=== PATIENT | male | born 1945 | race Caucasian/White ===

== ENCOUNTER 2020-10-17 07:48 | Emergency (ER) | payer MEDICARE, SELFPAY ==
[2020-10-17 07:49] VITALS: BP 138/106; PULSE 89; RESP 14; TEMP 36.6; O2SAT 96; BMI 24.0
--- NOTE | 2020-10-17 08:16 | EX.ED.DYSGE1 ---
HPI History of Present Illness Chief Complaint: Foreign Body Narrative Narrative: Patient complains of a food foreign body stuck in his esophagus that occurred last night after he ate hamburger and macaroni and cheese at a picnic. He has been unable to swallow since this. He has had prior food impactions treated at [facility] by GI he has prior EGD he has prior esophageal stretching about a year ago. He is otherwise been stable health conditions hypertension and gout are all stable his only complaint is trouble swallowing food Past medical history is GI esophageal obstruction related to food impaction, esophageal stricture, hypertension gout Parkinson's disease [facility] Medical History (Updated 10/17/20 @ 08:31 by Karina Torres) Hypertension Home Medications Sinemet 25/100 2 tab PO TID 02/10/13 [History Last Taken 02/10/13 14:05] allopurinol 300 mg PO DAILY 02/10/13 [History Last Taken 02/10/13 09:35] carbidopa-levodopa 2 tab PO TIDAC #60 tablet 02/20/13 [Rx Last Taken Unknown] lisinopril 10 mg PO DAILY #30 02/20/13 [Rx Last Taken 02/10/13 09:35] prednisone 10 mg PO DAILY #18 02/20/13 [Rx Last Taken 02/10/13 09:35] Allergy/AdvReac Type Severity Reaction Status Date / Time cocoa [[place]] AdvReac Food Verified 10/17/20 07:51 Allergy Social History Smoking Status: Never smoker ROS ROS ED ROS Narrative Trouble swallowing is his only complaint Constitutional Constitutional ED: Reports subjective, sweats and other; Denies chills, fever(s) or weight loss Eyes Eyes: Denies blurry vision or change in vision ENT ENT ED: Denies ear pain Cardiovascular Cardiovascular: Denies chest pain or palpitations Respiratory/Chest Respiratory/Chest: Denies dyspnea Gastrointestinal Gastrointestinal: Denies abdominal pain, nausea or vomiting Genitourinary Genitourinary ED: Denies dysuria or hematuria Musculoskeletal Musculoskeletal: Denies arthralgias or myalgias Integumentary Reports rash; Denies abscess Neurologic Neurologic: Denies weakness Psychiatric Psychiatric: Denies anxiety or depression Endocrine Endocrinology: Denies polydipsia or polyuria Allergic/Immunologic Allergic/Immunologic ED: Denies urticaria EXAM Physical Exam Narrative Exam Narrative: He spitting up clear saliva he cannot take sips of liquid, his airways intact his mouth is unremarkable this general medical exam is otherwise unremarkable see below, Const Vital Signs: 10/17/20 07:49 10/17/20 08:57 Temperature 97.9 F Temperature Source Temporal Pulse Rate 89 62 Respiratory Rate 14 18 Blood Pressure 138/106 H Blood Pressure Mean 116 Pulse Ox 96 100 Oxygen Delivery Method Room Air Positive well developed General Appearance ED: well developed HEENT Reports normocephalic Negative for trauma Eyes EOMs intact bilaterally Neck supple Chest Wall inspection of chest normal Resp normal respiratory effort Cardio regular rate GI non-tender and non-distended Back/Spine Back/Spine Narrative: unremarkable Extremity normal to inspection Neuro oriented x3 and CN's II-XII intact bilaterally Sensorium / Orientation: alert Psych mental status grossly normal Skin no rashes or lesions noted MDM MDM MDM Narrative Medical decision making narrative: I had a long conversation with him he understands that he will likely require emergent EGD given the above we did treat him with glucagon Ativan 0.5 mg IV Patient screening labs are generally unremarkable his hemoglobin is 18, he was given glucagon and Ativan as above he had no response continues to complain and cannot swallow and spitting up saliva I spoke with the [facility] transfer center spoke with Dr. Decker of GI he is a patient of that group they have accepted in transfer to have this condition further managed at [facility] patient is agreeable to transfer Transfer to [facility] for GI evaluation Final impression esophageal food impaction history of same, history of esophageal stricture Parkinson's and hypertension Lab Data Labs: Laboratory Results - last 24 hr 10/17/20 10/17/20 08:25 08:25 WBC 6.0 RBC 4.94 Hgb 18.8 H* Hct 54.1 H MCV 109.5 H MCH 38.1 H MCHC 34.8 RDW Std Deviation 54.6 H RDW Coeff of Sangeeta 13.2 Plt Count 375 MPV 8.6 Immature Gran % (Auto) 0.700 Neut % (Auto) 58.9 Lymph % (Auto) 22.5 [place] % (Auto) 7.7 Eos % (Auto) 9.7 H Baso % (Auto) 0.5 Absolute Neuts (auto) 3.5 Absolute Lymphs (auto) 1.35 Nucleated RBC % 0 Sodium 140 Potassium 3.7 Chloride 104 Carbon Dioxide 29.0 Anion Gap 7 BUN 8 Creatinine 1.04 Estim Creat Clear Calc 63.37 Est GFR (MDRD) Af Amer 90 Est GFR (MDRD) Non-Af 74 BUN/Creatinine Ratio 7.7 L Glucose 95 Calcium 9.0 Discharge Plan Triage Chief Complaint: Foreign Body ED Provider: Rose Sebastian Dx/Rx/DC Orders Prescriptions: No Action allopurinol 300 MG tablet 300 mg PO DAILY RF: 0 Sinemet 25/100 2 tab PO TID RF: 0 lisinopril 10 MG tablet 10 mg PO DAILY Qty: 30 RF: 0 prednisone 50 MG tablet 10 mg PO DAILY Qty: 18 RF: 0 carbidopa-levodopa 1 TABLET tablet 2 tab PO TIDAC Qty: 60 RF: 0 Primary Care Provider: Sebas Staton Referrals: Sebas Staton DO [Primary Care Provider] - Activity Restrictions/Additional Instructions: Go directly to [facility] to have a GI evaluation in this condition managed
[2020-10-17] MEDS: LORazepam 2 MG/ML Syringe 0.5 MG IV (08:20)
[2020-10-17] MEDS: Glucagon 1 MG/ML Syringe IV (08:22)
[2020-10-17 08:32] LABS: Absolute Lymphocyte Count 1.35 X10^3/uL (0.83-4.51); Absolute Neutrophil Count 3.5 X10^3/uL (2.0-7.7); Basophil# 0.03 X10^3/uL; Basophil% 0.5 % (0-1); Eosinophil# 0.58 X10^3/uL; Eosinophils% 9.7 % (0-5); Hematocrit 54.1 % (40-54); Hemoglobin 18.8 g/dL (13.0-16.5); Lymphocyte # 1.35 X10^3/ul (0.83-4.51); Lymphocyte % 22.5 % (19-41); Mean Corp Hgb Conc 34.8 g/dL (32-36); Mean Corpuscular Hgb 38.1 pg (27.0-32.0); Mean Corpuscular Volume 109.5 fL (80-94); Mean Platelet Vol. 8.6 fl (6.2-12.0); Monocyte# 0.46 X10^3/uL; Monocyte% 7.7 % (0-10); NRBC Flagged by Analyzer 0 % (0-5); Neutrophil # 3.54 X10^3/uL (2.7-7.7); Neutrophil % 58.9 % (47-70); Platelet Count 375 K/mm3 (150-450); RBC Distribution Width CV 13.2 % (11.6-14.6); RBC Distribution Width SD 54.6 fl (35.1-43.9); Red Blood Count 4.94 M/mm3 (4.6-6.2)
[2020-10-17 08:49] LABS: Anion Gap 7 (5-15); BUN 8 mg/dL (7-18); BUN/Creat Ratio 7.7 RATIO (10-20); Chloride 104 mmol/L (98-107); Creatinine, Serum 1.04 mg/dL (0.70-1.30); EST Glomerular Filtration Rate 74 mL/min (>60); Est Glom Filt Rate - Afr Amer 90 mL/min (>60); Estimated Creatinine Clearance 63.37 ml/min; Glucose 95 mg/dL (74-106); Potassium 3.7 mmol/L (3.5-5.1); Sodium Level 140 mmol/L (136-145)
[2020-10-17 08:57] VITALS: PULSE 62; RESP 18; O2SAT 100
[2020-10-17 09:34] VITALS: BP 165/103; PULSE 82; RESP 18; O2SAT 99
[2020-10-17 10:38] VITALS: BP 165/103; PULSE 82; RESP 18; O2SAT 99
== END 2020-10-17 10:40 | disposition short-term general hospital (02) ==
PROVIDERS: Emergency Provider Emergency Medicine; PCP Student in an Organized Health Care Education/Training Program
DX: T18.128A Food in esophagus causing other injury, initial encounter (principal); X58.XXXA Exposure to other specified factors, initial encounter; Y93.9 Activity, unspecified; Y92.9 Unspecified place or not applicable; Y99.9 Unspecified external cause status; G20 Parkinson's disease; I10 Essential (primary) hypertension; M10.9 Gout, unspecified; Z79.52 Long term (current) use of systemic steroids; Z79.899 Other long term (current) drug therapy
CPT/HCPCS: 80048; 85025; 96374; 96375; 99285; A4216; J1610

== ENCOUNTER 2021-03-22 16:03 | Emergency (ER) | payer MEDICARE, SELFPAY ==
[2021-03-22 16:04] VITALS: BP 205/104; PULSE 98; RESP 16; TEMP 36.8; O2SAT 97; BMI 24.0
--- NOTE | 2021-03-22 16:19 | EKG12_ITS ---
Test Reason : DYSRHYTHMIA Blood Pressure : / mmHG Vent. Rate : 089 BPM Atrial Rate : 089 BPM P-R Int : 162 ms QRS Dur : 060 ms QT Int : 372 ms P-R-T Axes : 028 -30 006 degrees QTc Int : 452 ms Normal sinus rhythm Left axis deviation Inferior infarct , age undetermined Abnormal ECG Confirmed by JAISON SELLERS, BRAULIO ([id number]), school photograph editor REX HARDING ([id number]) on 03/23/2021 1:54:08 PM Referred By: DEMETRIO Confirmed By:BRAULIO BLACKWOOD MD
--- NOTE | 2021-03-22 16:19 | RAD_ITS ---
STUDY: X-RAY CHEST REASON FOR EXAM: Male, 75 years old. Blurry vision x1 week ago, sent over from automatic developer. TECHNIQUE: AP COMPARISON: 01/10/2013 FINDINGS: The lungs are clear and expanded. There is no demonstrated pleural abnormality. Normal size heart. Normal mediastinum and jose angel. Normal visualized pulmonary arteries. There is atherosclerotic tortuosity of the aortic arch and descending thoracic aorta. Normal visualized thoracic spine. All left rib fractures. There is no demonstrated abnormality of the visualized soft tissue structures of the upper abdomen. RAD/Chest 1 View (Portable) IMPRESSION: 1. Nonacute portable x-ray examination of the chest. Electronically Signed: August Bautista MD ([place]) at 17:25 EST , Service support ,
--- NOTE | 2021-03-22 16:29 | NURSING ---
NO OLD EKGS
[2021-03-22 16:44] LABS: Absolute Lymphocyte Count 1.45 X10^3/uL (0.83-4.51); Absolute Neutrophil Count 4.6 X10^3/uL (2.0-7.7); Basophil# 0.03 X10^3/uL; Basophil% 0.4 % (0-1); Eosinophil# 0.13 X10^3/uL; Eosinophils% 1.9 % (0-5); Lymphocyte # 1.45 X10^3/ul (0.83-4.51); Lymphocyte % 21.7 % (19-41); Mean Corp Hgb Conc 34.4 g/dL (32-36); Mean Corpuscular Volume 104.5 fL (80-94); Mean Platelet Vol. 8.7 fl (6.2-12.0); Monocyte# 0.49 X10^3/uL; Monocyte% 7.3 % (0-10); NRBC Flagged by Analyzer 0 % (0-5); Neutrophil # 4.56 X10^3/uL (2.7-7.7); Neutrophil % 68.3 % (47-70); Platelet Count 264 K/mm3 (150-450); RBC Distribution Width CV 13.6 % (11.6-14.6); RBC Distribution Width SD 52.8 fl (35.1-43.9); White Blood Count 6.7 K/mm3 (4.4-11.0)
[2021-03-22 17:00] LABS: Anion Gap 8 (5-15); BUN 8 mg/dL (7-18); BUN/Creat Ratio 6.4 RATIO (10-20); Calcium,Total 9.8 mg/dL (8.5-10.1); Chloride 104 mmol/L (98-107); Creatinine, Serum 1.25 mg/dL (0.70-1.30); EST Glomerular Filtration Rate 60 mL/min (>60); Est Glom Filt Rate - Afr Amer 72 mL/min (>60); Estimated Creatinine Clearance 52.72 ml/min; Glucose 111 mg/dL (74-106); Potassium 4.3 mmol/L (3.5-5.1); Sodium Level 140 mmol/L (136-145)
[2021-03-22 17:02] LABS: Hematocrit 64.8 % (40-54); Hemoglobin 22.3 g/dL (13.0-16.5)
--- NOTE | 2021-03-22 17:11 | NURSING ---
FRIEND CALLED ABOUT RIDE. HIS NAME IS DELMA DRISCOLL 1ST NUMBER IS [phone] 2ND NUJBER IS [phone]
[2021-03-22 17:27] LABS: International Normalized Ratio 1.2; Prothrombin Time (Protime)PT. 14.4 SECONDS (11.7-14.9)
[2021-03-22 17:28] LABS: Partial Thromboplast Time 44.2 Seconds (24.1-36.2)
--- NOTE | 2021-03-22 20:04 | CT_ITS ---
EXAM: CT ANGIOGRAPHY HEAD AND NECK WITH INTRAVENOUS CONTRAST CLINICAL INDICATION: CVA TECHNIQUE: [place]/head and neck CT angiography protocol performed with intravenous contrast. This CT exam was performed using one or more of the following dose reduction techniques: automated exposure control, adjustment of the mA and/or kV according to patient size, and/or use of iterative reconstruction technique. This report was created using [employer] report generation technology. MIP reconstructed images were created and reviewed. CONTRAST: IV 100mL Isovue-300 COMPARISON: None. FINDINGS: HEAD:Chronic involutional changes of the brain. RIGHT ANTERIOR CEREBRAL ARTERY: Unremarkable. No significant stenosis at the visualized segments. Anterior communicating artery is present. No aneurysm. RIGHT MIDDLE CEREBRAL ARTERY: Unremarkable. No significant stenosis at the visualized segments. No aneurysm. RIGHT POSTERIOR CEREBRAL ARTERY: Unremarkable. No occlusion or significant stenosis. No aneurysm. LEFT ANTERIOR CEREBRAL ARTERY: Unremarkable. No significant stenosis at the visualized segments. No aneurysm. LEFT MIDDLE CEREBRAL ARTERY: Unremarkable. No significant stenosis at the visualized segments. No aneurysm. LEFT POSTERIOR CEREBRAL ARTERY: Unremarkable. No occlusion or significant stenosis. No aneurysm. BASILAR ARTERY: Unremarkable. No significant stenosis. No aneurysm. GREAT VESSELS OF AORTIC ARCH: Unremarkable. Normal anatomy, patent. OTHER VASCULATURE: No vascular malformation. NECK: RIGHT COMMON CAROTID ARTERY: Unremarkable. No significant stenosis. No dissection or occlusion. RIGHT INTERNAL CAROTID ARTERY: There is calcified plaque formation of the right cavernous carotid artery, with a mild stenosis (less than 50%). There is calcified plaque formation of the left cavernous carotid artery, with a mild stenosis (less than 50%). ALL ABOVE CRITERIA BY NASCET. No dissection or occlusion. RIGHT EXTERNAL CAROTID ARTERY: Unremarkable. No occlusion. RIGHT VERTEBRAL ARTERY: Unremarkable. No significant stenosis. No dissection or occlusion. LEFT COMMON CAROTID ARTERY: Unremarkable. No significant stenosis. No dissection or occlusion. LEFT INTERNAL CAROTID ARTERY: There is mild atherosclerotic plaque formation of the origin of the right and left internal carotid artery with less than 50% cross sectional diameter stenosis. ALL ABOVE CRITERIA BY NASCET. LEFT EXTERNAL CAROTID ARTERY: Unremarkable. No occlusion. LEFT VERTEBRAL ARTERY: Unremarkable. No significant stenosis. No dissection or occlusion. LUNG APICES: Unremarkable as visualized. SOFT TISSUES: Unremarkable. CAROTID STENOSIS REFERENCE USING NASCET CRITERIA: % ICA stenosis = (1 - narrowest ICA diameter/diameter of distal cervical ICA) x 100. Mild - <50% stenosis. Moderate - 50-69% stenosis. Severe - 70-94% stenosis. Near occlusion - 95-99% stenosis. Occluded - 100% stenosis. CT/CTA Head AND Neck W/ Contrast IMPRESSION: 1. There is mild atherosclerotic plaque formation of the origin of the right and left internal carotid artery with less than 50% cross sectional diameter stenosis. ALL ABOVE CRITERIA BY NASCET. 2. There is calcified plaque formation of the right cavernous carotid artery, with a mild stenosis (less than 50%). There is calcified plaque formation of the left cavernous carotid artery, with a mild stenosis (less than 50%). ALL ABOVE CRITERIA BY NASCET. Electronically Signed: Harvey Julian MD at 21:04 EST , Service support ,
--- NOTE | 2021-03-22 20:05 | EDS_ITS ---
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 Patient reportedly woke approximately 5 days ago with vision problems out of the lateral portion of his right eye. He was seen by ophthalmology today and found to have a hemianopsia. He was sent here for stroke work-up. Patient denies any other complaints. Patient does report history of blood clots. He states because he was having so much bruising and bleeding on Eliquis he cut his dose down to only [address] [facility] Medical History (Updated 03/22/21 @ 23:[address] Rosaura Arana MD) Gout Hypertension Parkinson's syndrome Stroke/cerebrovascular accident Home Medications lisinopril 10 mg PO DAILY #30 02/20/13 [Rx Last Taken 02/10/13 09:35] apixaban [Eliquis] 5 mg PO DAILY 03/22/21 [History Last Taken Unknown] colchicine 0.6 mg PO DAILY PRN 03/22/21 [History Last Taken Unknown] cyanocobalamin (vitamin B-12) 1,000 mcg PO DAILY 03/22/21 [History Last Taken Unknown] folic acid 1 mg PO DAILY 03/22/21 [History Last Taken Unknown] pantoprazole 40 mg PO DAILY 03/22/21 [History Last Taken Unknown] Allergy/AdvReac Type Severity Reaction Status Date / Time cocoa [[place]] AdvReac Food Verified 03/22/21 16:06 Allergy Social History Smoking Status: Never smoker ROS ROS ED Constitutional Constitutional ED: Denies chills or fever(s) Eyes Eyes: Reports change in vision ENT ENT ED: Denies sore throat Cardiovascular Cardiovascular: Denies chest pain Respiratory/Chest Respiratory/Chest: Denies cough or dyspnea Gastrointestinal Gastrointestinal: Denies abdominal pain, diarrhea, nausea or vomiting Genitourinary Genitourinary ED: Denies dysuria Musculoskeletal Musculoskeletal: Denies back pain Integumentary Denies rash Neurologic Neurologic: Denies headache(s), paresthesias or weakness Psychiatric Psychiatric: Reports anxiety Allergic/Immunologic Allergic/Immunologic ED: Denies urticaria EXAM Physical Exam Const Vital Signs: 03/22/21 16:04 03/22/21 20:21 03/22/21 21:23 Temperature 98.2 F Temperature Source Temporal Pulse Rate 98 Respiratory Rate 16 19 H Blood Pressure 205/104 H 152/120 H 151/88 H Blood Pressure Mean 137 130 109 Pulse Ox 97 97 97 Oxygen Delivery Method Room Air Room Air Positive well nourished and well developed General Appearance ED: well developed HEENT Reports moist mucous membranes Eyes PERRL and EOMs intact bilaterally Neck no lymphadenopathy and supple Chest Wall inspection of chest normal and palpation of chest normal Resp normal respiratory effort and clear to auscultation bilaterally Cardio Rate: regular rate Rhythm: regular rhythm GI normal to inspection, nondistended, normoactive bowel sounds, soft to palpation and non-tender Extremity normal to inspection Neuro oriented x3 and no sensory deficits noted Neuro Narrative: Hemianopsia right eye. Sensorium / Orientation: alert Motor Exam: strength 5/5 throughout Psych Mood & Affect: anxious Skin Lesions: no lesions Rashes: no rashes STROKE Vital Signs/Narrative: Vital Signs Resp BP Pulse Ox 03/22/21 21:23 151/88 H 97 03/22/21 20:21 19 H 152/120 H 97 MDM MDM MDM Narrative Medical decision making narrative: Lab work, CTA head neck, EKG ordered. Lab Data Attestation: I reviewed the patient's lab results. Labs: Laboratory Results - last 24 hr 03/22/21 03/22/21 03/22/21 16:10 16:10 16:10 WBC 6.7 RBC 6.20 Hgb 22.3 H* Hct 64.8 H MCV 104.5 H MCH 36.0 H MCHC 34.4 RDW Std Deviation 52.8 H RDW Coeff of Sangeeta 13.6 Plt Count 264 MPV 8.7 Immature Gran % (Auto) 0.400 Neut % (Auto) 68.3 Lymph % (Auto) 21.7 [place] % (Auto) 7.3 Eos % (Auto) 1.9 Baso % (Auto) 0.4 Absolute Neuts (auto) 4.6 Absolute Lymphs (auto) 1.45 Nucleated RBC % 0 PT Cancelled INR Cancelled APTT Cancelled Sodium 140 Potassium 4.3 Chloride 104 Carbon Dioxide 28.0 Anion Gap 8 BUN 8 Creatinine 1.25 Estim Creat Clear Calc 52.72 Est GFR (MDRD) Af Amer 72 Est GFR (MDRD) Non-Af 60 BUN/Creatinine Ratio 6.4 L Glucose 111 H Calcium 9.8 03/22/21 17:13 WBC RBC Hgb Hct MCV MCH MCHC RDW Std Deviation RDW Coeff of Sangeeta Plt Count MPV Immature Gran % (Auto) Neut % (Auto) Lymph % (Auto) [place] % (Auto) Eos % (Auto) Baso % (Auto) Absolute Neuts (auto) Absolute Lymphs (auto) Nucleated RBC % PT 14.4 INR 1.2 APTT 44.2 H Sodium Potassium Chloride Carbon Dioxide Anion Gap BUN Creatinine Estim Creat Clear Calc Est GFR (MDRD) Af Amer Est GFR (MDRD) Non-Af BUN/Creatinine Ratio Glucose Calcium Radiography Diagnostic Testing: Clinical Impression(s) from Imaging Studies Chest X-Ray 03/22/21 16:19 IMPRESSION: 1. Nonacute portable x-ray examination of the chest. Electronically Signed: August Bautista MD ([place]) at 17:25 EST , Service support , Head/Neck CTA 03/22/21 20:04 IMPRESSION: 1. There is mild atherosclerotic plaque formation of the origin of the right and left internal carotid artery with less than 50% cross sectional diameter stenosis. ALL ABOVE CRITERIA BY NASCET. 2. There is calcified plaque formation of the right cavernous carotid artery, with a mild stenosis (less than 50%). There is calcified plaque formation of the left cavernous carotid artery, with a mild stenosis (less than 50%). ALL ABOVE CRITERIA BY NASCET. Electronically Signed: Harvey Julian MD at 21:04 EST , Service support , EKG Initial EKG: Attestation: I personally reviewed and interpreted this EKG as follows: Interpretation: Sinus Rhythm (Sinus 89 with no acute ischemia.) Treatment and Re-Evaluation Comments:: Patient's test results discussed with him. Blood work significant for elevated hemoglobin at 22.3. He has had significantly elevated hemoglobin similar to this in the past. Chest x-ray per my interpretation shows no focal infiltrate. Radiology to rotation reviewed. CTA shows less than 50% stenosis in any vessels. No other acute findings noted. I did discuss with him need for an MRI for definitive diagnosis. Patient has had symptoms for 5 days and I do believe this could be accomplished on an outpatient basis. Patient states he is not able to tolerate the MRI machine here. He thinks he can tolerate an open MRI. I attempted to contact his PCP or whoever was on-call tonight. After an hour we have not received a return call. Patient will be discharged with instructions to call the office tomorrow morning. He voices understanding and agreement with the plan. Discharge Plan Triage Chief Complaint: Neuro S/Sx ED Provider: Rosaura Arana Dx/Rx/DC Orders Clinical Impression: CVA (cerebrovascular accident) Instructions: ED Stroke, Completed Prescriptions: No Action lisinopril 10 MG tablet 10 mg PO DAILY Qty: 30 RF: 0 colchicine 0.6 mg tablet 0.6 mg PO DAILY PRN (Reason: gout) RF: 0 cyanocobalamin (vitamin B-12) 1,000 mcg tablet 1,000 mcg PO DAILY RF: 0 pantoprazole 40 mg tablet,delayed release (DR/EC) 40 mg PO DAILY RF: 0 folic acid 1 mg tablet 1 mg PO DAILY RF: 0 Eliquis 5 mg tablet 5 mg PO DAILY RF: 0 Primary Care Provider: Sebas Staton Referrals: Sebas Staton DO [Primary Care Provider] - As soon as possible Activity Restrictions/Additional Instructions: As discussed, your CTA tonight does not show any significant abnormalities. You will require an MRI for definitive diagnosis of stroke. After discussion with you, it is felt that you would best tolerate an open MRI. Please follow-up with your primary care physician as soon as possible to have this arranged. Please return to your normal Eliquis dosing. Return immediately for any worsening symptoms or concerns. Disposition Disposition: Home, Self Care
[2021-03-22 20:21] VITALS: BP 152/120; RESP 19; O2SAT 97
[2021-03-22 20:23] VITALS: BMI 24.0
[2021-03-22 21:23] VITALS: BP 151/88; O2SAT 97
--- NOTE | 2021-03-22 21:24 | ED.RN ---
No [facility] per Dr. Arana.
[2021-03-22 23:17] VITALS: BP 149/85; PULSE 72; RESP 18; O2SAT 99
== END 2021-03-22 23:00 | disposition home or self-care (01) ==
PROVIDERS: Emergency Provider Emergency Medicine; PCP Student in an Organized Health Care Education/Training Program
DX: I63.9 Cerebral infarction, unspecified (principal); H53.47 Heteronymous bilateral field defects; G20 Parkinson's disease; I10 Essential (primary) hypertension; M10.9 Gout, unspecified; Z79.01 Long term (current) use of anticoagulants; Z79.899 Other long term (current) drug therapy; Z86.73 Personal history of transient ischemic attack (TIA), and cerebral infarction without residual deficits; Z86.718 Personal history of other venous thrombosis and embolism
CPT/HCPCS: 70496; 70498; 71045; 80048; 85025; 85610; 85730; 93005; 99284; Q9967; A4216